=== PATIENT | male | born 1965 | race American Indian/Alaskan Native ===

== ENCOUNTER 2017-05-20 09:52 | Inpatient (IN) | payer MEDICAID, MEDICARE, OTHER ==
--- NOTE | 2017-05-20 11:13 | Cat Scan Report ---
CT CERVICAL SPINE WITHOUT CONTRAST INDICATION: Trauma. COMPARISON: None similar. FINDINGS: Noncontrast axial, sagittal and coronal CT reconstructions of the cervical spine demonstrate slight streak artifact from few small radiopaque dental fillings. Assessment of the spinal canal itself also compromised from C5 inferiorly due to artifact from shoulder soft tissues. Patient tilt partly limits exam. Normal imaged posterior fossa. Approximately 3 mm benign ossific density/ossicle seen right lateral to the dens, coronal image 15. Craniocervical articulation, occipital condyles, anterior and posterior arches of C1, dens, predental space and prevertebral soft tissues appear within normal limits. Unremarkable thyroid. Clear visualized lung apices. On the obtained axial images: C5-C6 demonstrates slight degenerative spurring and mild left facet arthropathy. C6 vertebral body also demonstrates mild degenerative spurring. CONCLUSION: No acute cervical spine CT abnormality with mild C5 and C6 degenerative changes, as described. Thank you for the opportunity to participate in this patient's care.
--- NOTE | 2017-05-20 11:24 | Cat Scan Report ---
CT HEAD WITHOUT CONTRAST INDICATION: Head trauma. History of intracranial hemorrhage. COMPARISON: 04/29/2015. FINDINGS: Noncontrast head CT again demonstrates right posterior frontotemporoparietal encephalomalacia measuring up to approximately 5 cm, axial image 44, series 2 with right-sided craniotomy. Mild ex-vacuo dilatation of the right lateral ventricle posteriorly also noted as also subtle right dural hyperdensity/possible mineralization as on axial image 39, amongst others. Age-appropriate remainder ventricles and sulci without acute or recent infarct, hemorrhage, mass effect or midline shift. Minimal benign bilateral ganglia calcifications. Normal posterior fossa with preserved basilar cisterns. Moderate to severe left sphenoid sinus opacification now noted with mild bony wall thickening. Mild right sphenoid and posterior ethmoid mucosal thickening as well. Clear remainder imaged paranasal sinuses and mastoid air cells. Stable right frontal and temporal craniotomy defects on axial image 15 as well. Interval resolution of high right scalp swelling. Mild atherosclerotic ICA calcifications. Small radiopaque dental fillings. CONCLUSION: 1. No acute intracranial CT abnormality with stable right hemispheric iatrogenic changes with encephalomalacia again noted, as described. 2. New sphenoid sinusitis, left much greater than right. Thank you for the opportunity to participate in this patient's care.
[2017-05-20] MEDS ORDERED: MORPHINE IV ONE (11:38)
--- NOTE | 2017-05-20 11:51 | XRay Report ---
LEFT FEMUR RADIOGRAPHS INDICATION: Fall. COMPARISON: None similar. FINDINGS: AP and crosstable lateral views demonstrate left femoral neck fracture at its junction with the head. Femoral head though still positioned within the acetabulum. Normal remainder femur with intact knee articulation and few atherosclerotic calcifications. Demineralized bones. Few pelvic phleboliths, rectosigmoid stool and possible scrotal surgical clips. CONCLUSION: Left femoral neck acute subcapital fracture with various other findings, as above. Thank you for the opportunity to participate in this patient's care.
--- NOTE | 2017-05-20 11:57 | XRay Report ---
RIGHT HIP RADIOGRAPHS INDICATION: Fall. COMPARISON: Left femur radiographs obtained earlier today. FINDINGS: AP pelvis with frontal/frog-leg projection of the right hip demonstrates a fracture at the junction of femoral head and neck with cortical offset of approximately 8 mm. Femoral head though still well-positioned within the acetabulum in this patient with known similar fracture on the left as well. Numerous pelvic phleboliths, rectosigmoid stool and few atherosclerotic calcifications at the groins also noted. Intact remainder pelvic articulation and imaged lower lumbar spine. Nonobstructive bowel gas pattern. Extrinsic EKG leads. CONCLUSION: Acute right femoral neck subcapital fracture noted in this patient with similar injury on the left as well with few other findings, as above. Please correlate. Thank you for the opportunity to participate in this patient's care.
[2017-05-20] MEDS: NACL 0.9% 1000 ML 1,000 ML IV SCH (12:00)
[2017-05-20 12:06] LABS: Basophils % (Auto) 0.1 % (0.0-1.8); Eosinophils % (Auto) 0.2 % (0.0-4.3); Hematocrit 35.9 % (35.5-45.6); Hemoglobin 11.7 gm/dl (11.8-15.2); Mean Corpuscular HGB Conc 33 % (32-34); Mean Corpuscular Hemoglobin 33 pg (28-32); Mean Corpuscular Volume 100 fl (84-94); Platelet Count 212 K/mm3 (140-440); Red Blood Count 3.59 M/mm3 (3.65-5.03); Red Cell Distribution Width 13.5 % (13.2-15.2); White Blood Count 9.2 K/mm3 (4.5-11.0)
--- NOTE | 2017-05-20 12:08 | Emergency Department Report ---
HPI - General Chief Complaint: Fall Time Seen by Provider: 05/20/17 10:32 - HPI HPI: This is a 52 year-old male presents to the emergency department with complaint of blood coming from the head and bilateral hip pain after he was found on the floor by staff at the [facility]. The got to see him there was a 9 cm circular bloodstain on his pillow. He has a history of previous intracranial bleed and that is what led to him having some intermittent confusion. The patient does not remember any fall. He is inpatient hospice secondary to this previous intracranial bleed. However the patient is ambulatory up until this fall. He also has a history of HIV. He did not take anything and was not given anything for his symptoms prior to presentation. ED Past Medical Hx - Past Medical History Previous Medical History?: Yes Hx CVA: Yes (7cm Intercranial Hemmorage) Hx HIV: Yes - Surgical History Past Surgical History?: Yes - Social History Smoking Status: Unknown if ever smoked - Medications Home Medications: Home Medications Medication Instructions Recorded Confirmed Last Taken Type Acetaminophen 650 mg PO Q6H PRN 05/20/17 05/20/17 Unknown History LORazepam [Ativan] 2 mg PO QHS 05/20/17 05/20/17 Unknown History Morphine Sulfate [Morphine Sulfate 15 mg PO Q4H 05/20/17 05/20/17 Unknown History ER] Morphine Sulfate [Morphine Sulfate 30 mg PO Q12H 05/20/17 05/20/17 Unknown History ER] Promethazine HCl [Promethazine INJ] 25 mg IJ Q8H PRN 05/20/17 05/20/17 Unknown History Temazepam 30 mg PO QHS 05/20/17 05/20/17 Unknown History amLODIPine [Norvasc] 5 mg PO DAILY 05/20/17 05/20/17 Unknown History levETIRAcetam [Keppra TAB] 1,000 mg PO BID 05/20/17 05/20/17 Unknown History ED Review of Systems ROS: Stated complaint: FALL Other details as noted in HPI Comment: All other systems reviewed and negative Constitutional: denies: chills, fever Eyes: denies: eye pain, eye discharge, vision change ENT: denies: throat pain, dental pain Respiratory: denies: cough, shortness of breath, wheezing Cardiovascular: denies: chest pain, palpitations Gastrointestinal: denies: abdominal pain, nausea, diarrhea Genitourinary: denies: urgency, dysuria Musculoskeletal: arthralgia, myalgia. denies: back pain Skin: denies: rash, lesions Neurological: headache. denies: weakness, numbness Physical Exam - Physical Exam Vital Signs: Vital Signs 05/20/17 10:21 Temperature 99.6 F O2 Sat by Pulse 88 Oximetry Physical Exam: GENERAL: The patient is well-developed well-nourished. HENT: Normocephalic. Atraumatic. Patient has moist mucous membranes. Left external ear canal and tympanic membrane appear normal. There is some blood seen in the right external ear canal. There appears to be a separation or laceration to the inferior wall of the external ear canal. Possible anterior right tympanic membrane perforation. EYES: Extraocular motions are intact. Pupils equal reactive to light bilaterally. NECK: Supple. Trachea is midline. CHEST/LUNGS: Clear to auscultation. There is no respiratory distress noted. HEART/CARDIOVASCULAR: Regular. There is no tachycardia. There is no gallop rub or murmur. ABDOMEN: Abdomen is soft, nontender. Patient has normal bowel sounds. There is no abdominal distention. SKIN: Skin is warm and dry. NEURO: The patient is awake, alert. AAO [address] but not time. The patient is cooperative. The patient has no focal neurologic deficits. The patient has normal speech. MUSCULOSKELETAL: There is bilateral hip tenderness to palpation but there does not appear to be any laxity with compression of the pelvis. ED Course Vital Signs 05/20/17 10:21 Temperature 99.6 F O2 Sat by Pulse 88 Oximetry - Consultations Consultation #1: I spoke to the orthopedist relations coordinator, Dr. Trivedi, who is aware of the patient's findings of bilateral femoral neck fractures and will see the patient has a consult. 05/20/17 13:17 ED Medical Decision Making - Lab Data Result diagrams: 05/20/17 11:47 05/20/17 11:47 - Radiology Data Radiology results: report reviewed, image reviewed interpreted by me: X-ray of the bilateral hips shows bilateral hip fractures in the femoral neck. CT of the head does not show any acute intracranial process including no ischemia, shift, mass, bleeding or skull fracture. CT of the cervical spine does not show any fracture, subluxation or any acute process. - Medical Decision Making 52-year-old male with a history of intracranial bleed/CVA presents to the ER from his skilled nursing/hospice after he was found on the ground from some type of a fall. The patient does not remember this incident. He was found to have blood coming from the right ear and was complaining of hip pain. At first the patient only complained of left hip pain but then he was tender to palpation in the right hip as well. X-rays were done of both hips and was found to have bilateral femoral neck fractures. He is neurovascularly intact. CT of the head does not show any acute bleed, shift, mass or any acute intracranial processes. CT of the cervical spine does not show any fracture, subluxation or any acute process. The patient's hospice has been rescinded. The orthopedist is aware. The patient will be admitted to the hospitalist service where he will receive an orthopedic consultation as well on how to proceed with the bilateral femoral fracture. - Differential Diagnosis fracture, brain bleed, skull fracture, dementia Critical Care Time: No Critical care attestation.: If time is entered above; I have spent that time in minutes in the direct care of this critically ill patient, excluding procedure time. ED Disposition Clinical Impression: Hypocalcemia, History of CVA (cerebrovascular accident), AIDS, Encephalomalacia Bilateral closed hip fractures Qualifiers: Encounter type: initial encounter Qualified Code(s): S72.001A - Fracture of unspecified part of neck of right femur, initial encounter for closed fracture; S72.002A - Fracture of unspecified part of neck of left femur, initial encounter for closed fracture Fall Qualifiers: Encounter type: initial encounter Qualified Code(s): W19.XXXA - Unspecified fall, initial encounter Disposition: DC-09 OP ADMIT IP TO THIS HOSP Is pt being admited?: Yes Condition: Stable Time of Disposition: 14:31
[2017-05-20 12:15] LABS: INR 1.35 (0.87-1.13)
[2017-05-20 12:16] LABS: Partial Thromboplastin Time 30.3 Sec. (24.2-36.6)
[2017-05-20] MEDS ORDERED: DILAUDID ONE ×2 (12:17→14:30)
[2017-05-20] MEDS ORDERED: NACL 0.9% 1000 ML 1,000 ML ONE (12:17)
--- NOTE | 2017-05-20 12:17 | History and Physical Report ---
History of Present Illness Chief complaint: My leg hurts History of present illness: 52 YO Male [facility] Resident, who was on inpatient hospice care, but revoked service today with AIDS, ICH presents to ED for evaluation. Pt is unable to provide detailed history, but history is provided by who is at bedside during exam and interview. As per patients , she visited her and found blood coming from his right ear, and he complained of bilateral hip pain. Pt ambulates independently, but was found on the floor by staff at the [facility]. The patient does not remember any fall. No reports of fever, chills, CP, Palpitations, NVD, syncope, BRBPR, recent ill contacts. Pt seen and evaluated in ED and found to have bilateral hip fractures. Ortho Surgery consulted in ED. Past History Past Medical History: HIV/AIDS, other (ICH) Past Surgical History: Other (Crainiotomy) Social history: , other (SNF resident). denies: smoking, alcohol abuse, prescription drug abuse Family history: hypertension Medications and Allergies Allergies Allergy/AdvReac Type Severity Reaction Status Date / Time No Known Allergies Allergy Verified 04/29/15 18:45 Home Medications Medication Instructions Recorded Confirmed Last Taken Type Acetaminophen 650 mg PO Q6H PRN 05/20/17 05/20/17 Unknown History LORazepam [Ativan] 2 mg PO QHS 05/20/17 05/20/17 Unknown History Morphine Sulfate [Morphine Sulfate 15 mg PO Q4H 05/20/17 05/20/17 Unknown History ER] Morphine Sulfate [Morphine Sulfate 30 mg PO Q12H 05/20/17 05/20/17 Unknown History ER] Promethazine HCl [Promethazine INJ] 25 mg IJ Q8H PRN 05/20/17 05/20/17 Unknown History Temazepam 30 mg PO QHS 05/20/17 05/20/17 Unknown History amLODIPine [Norvasc] 5 mg PO DAILY 05/20/17 05/20/17 Unknown History levETIRAcetam [Keppra TAB] 1,000 mg PO BID 05/20/17 05/20/17 Unknown History Review of Systems ROS unobtainable: due to mental status Exam - Constitutional Vitals: Temp Pulse Resp BP Pulse Ox 99.6 F 88 12 143/78 97 05/20/17 10:21 05/20/17 10:30 05/20/17 10:30 05/20/17 10:30 05/20/17 10:30 General appearance: Present: mild distress - EENT Eyes: Present: PERRL ENT: hearing intact, clear oral mucosa - Neck Neck: Present: supple, normal ROM - Respiratory Respiratory effort: normal Respiratory: bilateral: CTA - Cardiovascular Heart Sounds: Present: S1 & S2. Absent: rub, click - Extremities Extremities: pulses symmetrical, No edema Extremity abnormal: other (Bilateral hip TTP, Pain with attempted rotation, movement) Peripheral Pulses: within normal limits - Abdominal General gastrointestinal: Present: soft, non-tender, non-distended, normal bowel sounds Male genitourinary: Present: normal - Integumentary Integumentary: Present: clear, warm, dry - Musculoskeletal Musculoskeletal: gait normal, strength equal bilaterally - Psychiatric Psychiatric: no intact judgment & insight, no memory intact - Neurologic Neurologic: CNII-XII intact, moves all extremities Results - Labs CBC & Chem 7: 05/20/17 11:47 05/20/17 11:47 Labs: Abnormal lab results 05/20/17 05/20/17 Range/Units 11:47 11:47 RBC 3.59 L (3.65-5.03) M/mm3 Hgb 11.7 L (11.8-15.2) gm/dl MCV 100 H (84-94) fl MCH 33 H (28-32) pg Lymph % (Auto) 8.4 L (13.4-35.0) % Lymph # 0.8 L (1.2-5.4) K/mm3 Seg Neutrophils % 85.3 H (40.0-70.0) % Seg Neutrophils # 7.9 H (1.8-7.7) K/mm3 PT 17.4 H (12.2-14.9) Sec. INR 1.35 H (0.87-1.13) Assessment and Plan - Patient Problems (1) Bilateral hip fractures Current Visit: Yes Status: Acute Qualifiers: Encounter type: E Fracture type: F Open fracture type: O Fracture healing: F Plan to address problem: Ortho surgery consulted in ED, pain control, supportive care, Pending surgical intervention following family decision (2) AIDS Current Visit: Yes Status: Acute Plan to address problem: Outpatient ID F/U, (3) Encephalomalacia Current Visit: Yes Status: Acute Plan to address problem: CT Head, supportive care, repeat physical exam. (4) DVT prophylaxis Current Visit: Yes Status: Acute
--- NOTE | 2017-05-20 12:17 | Admit Criteria Form ---
Admission Criteria Documentation: MUSCULOSKELETAL DISEASE GRG Clinical Indications for Admission to Inpatient Care (Place 'X' for any and all applicable criteria): Hospital admission is needed for appropriate care of the patient because of 1 or more of the following: [ X]I. Fracture, dislocation, or other musculoskeletal injury requiring inpatient care(medical) as indicated by 1 or more of the following(4)(5)(6)(7) [ ]a) Vertebral fracture requiring observation for instability or neurologic compromise (8) [ ]b) Compartment syndrome (proven or cannot be ruled out during observation level of care) (9) [ ]c) Limb-threatening injury [ ]d) Major injury requiring inpatient stabilization such as traction initiation or external fixation before internal fixation or closure of complex or open fracture [X ]e) Major injury requiring inpatient treatment after emergency or observation level care (as appropriate) [ ]f) Severe pain requiring acute inpatient management [ ]g) Injury with suspicion of abuse or neglect (eg., child, dependent elderly) [ ]II. Newly diagnosed or suspected bone, joint, or orthopedic device infection (e.g., osteomyelitis, septic arthritis) needing 1 or more of the following(1)(2)(3) [ ]a) IV antibiotics that cannot be initiated in other than inpatient setting (e.g., patient too unstable or home infusion not available) [ ]b) Device removal or replacement [ ]c) Bone or soft tissue debridement [ ]d) Joint drainage (drain placement or repetitive aspirations) [ ]III. Severe rheumatologic disease (e.g., systemic lupus erythematosus, rheumatoid arthritis) with complications or comorbidities (Also use Optimal Recovery Care Criteria or General Recovery Criteria as appropriate on the basis of predominant condition), including 1 or more of the following( 10)(11)(12)(13) [ ]a) Severe infection (e.g., DANCE PROFESSOR infection, sepsis) (14) [ ]b) Respiratory complications, including 1 or more of the following : [ ]i) Pleural effusion with respiratory compromise [ ]ii) Pulmonary hypertension with congestive failure [ ]iii) Respiratory failure [ ]iv) Pulmonary hemorrhage (15) [ ]c) Hematologic disease, including 1 or more of the following: [ ]i) Coagulopathy with bleeding [ ]ii) Thrombosis with hypercoagulable state [ ]iii) Thrombotic thrombocytopenic purpura [ ]d) Cerebritis with seizures, psychosis, or other severe abnormalities [ ]e) Vertebral destruction with monitoring needed for cervical myelopathy& possible respiratory compromise [ ]f) Exacerbation that requires inpatient treatment (e.g., intravenous immunosuppression) (16) [ ]g) Acute renal failure [ ]h) Cerebritis with seizures, psychosis, Altered mental status, or other neurologic abnormalities [ ]i) Pericardial effusion with tamponade [ ]j) Vertebral destruction, with monitoring needed for cervical myelopathy and possible respiratory compromise [ ]IV. Severe vasculitis with complications or comorbidities (Also use Optimal Recovery Care Criteria General Recovery Criteria as appropriate on the basis of predominant condition), including 1 or more of the following(11)(12)(17)(18)(19)(20) [ ]a) Exacerbation that requires inpatient treatment (e.g., intravenous immunosuppression) (19)(21) [ ]b) Pulmonary hemorrhage (15) [ ]c) DANCE PROFESSOR vasculitis with seizures, psychosis, Altered mental status that is severe or persistent, or other severe abnormalities (22) [ ]d) Cerebral infarction [ ]e) Gastrointestinal ischemia [ ]f) Gangrene or threatened amputation [ ]g) Renal failure (16) [ ]h) Other significant complications of vasculitis ( eg., tissue or organ ischemia, organ dysfunction ) [ ]V. Severe myopathy as indicated by 1 or more of the following (28)(29) [ ]a) New onset of airway compromise or inability to swallow [ ]b) Respiratory deterioration with observation needed for impending respiratory failure [ ]c) Exacerbation that requires inpatient treatment (e.g., intravenous immunosuppression) [ ]. Severe crystal gout (arthropathy) indicated by 1 or more of the following (23)(24) [ ]a) Severe pain requiring acute inpatient management [ ]b) Exacerbation that requires inpatient treatment (e.g., intravenous treatment) [ ]VII.Rhabdomyolysis and 1 or more of the following (25)(26)(27) [ ]a) Acute renal failure [ ]b) Need for intravenous hydration after emergency or observation level care (as appropriate) [ ]c) Inability to maintain oral hydration [ ]d) Change in mental status [ ]e) Electrolyte abnormality that remains after emergency or observation level care (as appropriate) [ ]VIII Post amputation complication, as indicated by ANY ONE of the following [ ]a) Infection [ ]b) Dehiscence [ ]c) Myodesis failure [ ]IX. Severe pain requiring acute inpatient management due to musculoskeletal condition [ ]X. Musculoskeletal Disease and ALL of the following: [ ]a) Symptom or finding for which emergency and observation care have failed or are not considered appropriate (Use General Criteria: Observation Care as appropriate) [ ]b) Presence of ANY ONE of the following [ ]i) A General Admission Criteria [ ]ii) A Pediatric General Admission Criteria The original [facility] [employer] content created by [facility] [employer] ([employer] has been revised. The portions of the content which have been revised are identified through the use of italic text or in bold, and [facility] has neither reviewed nor approved the modified material. All other unmodified content is copyright [facility] [employer] ([employer] Please see references footnoted in the original [facility] edition 2016 Admission Criteria Met: Yes
[2017-05-20 12:20] LABS: BUN/Creatinine Ratio 9.33; Potassium 3.5 mmol/L (3.6-5.0)
[2017-05-20] MEDS ORDERED: DILAUDID IV ONE (12:31)
[2017-05-20] MEDS ORDERED: PROVENTIL IH PRN (13:04)
[2017-05-20] MEDS ORDERED: MILK OF MAGNESIA PO PRN (13:04)
[2017-05-20] MEDS ORDERED: TYLENOL PO PRN (13:04)
[2017-05-20] MEDS ORDERED: DULCOLAX PR PRN (13:04)
[2017-05-20] MEDS ORDERED: ZOFRAN IV PRN (13:04)
[2017-05-20] MEDS ORDERED: PROMETHAZINE HCL 25 MG IJ PRN (13:07)
[2017-05-20 13:15] LABS: Calcium 5.7 mg/dL (8.4-10.2)
[2017-05-20] MEDS ORDERED: RESTORIL PO PRN (13:40)
[2017-05-20] MEDS ORDERED: D5/0.45NS 1,000 ML IV SCH (14:00)
[2017-05-20] MEDS ORDERED: MS CONTIN ER PO SCH (14:00)
[2017-05-20] MEDS: DILAUDID IV PRN ×2 (14:24→20:44)
[2017-05-20] MEDS ORDERED: TYLENOL ONE (14:30)
[2017-05-20] MEDS: MS CONTIN ER PO SCH (16:16)
--- NOTE | 2017-05-20 16:30 | Anesthesia Consultation ---
Anesthesia Consult and Med Hx Date of service: 05/20/17 - Airway Anesthetic Teeth Evaluation: Good ROM Head & Neck: Adequate Mental/Hyoid Distance: Adequate Mallampati Class: Class II Intubation Access Assessment: Probably Good - Pre-Operative Health Status ASA Pre-Surgery Classification: ASA3 Proposed Anesthetic Plan: General - Cardiovascular System Hx Hypertension: Yes - Central Nervous System Hx Neuromuscular Disorder: Yes (left side weakness, following stroke) Hx Seizures: Yes (last 3 years,) CVA: Yes (hemorragic stroke 2013, craniotomy) Hx Back Pain: No Hx Psychiatric Problems: Yes (some dementia) - Additional Comments Anesthesia Medical History Comments: AIDS with multiorganal involvement, inpatient hospice care facility resident. Bilateral hips fracture following a fall after seizure on 05/20/2017
[2017-05-20] MEDS ORDERED: PEPCID IV NR (17:00)
[2017-05-20] MEDS ORDERED: VERSED IV NR (17:00)
--- NOTE | 2017-05-20 18:00 | Consultation ---
History of Present Illness - HPI Consult date: 05/20/17 Consult reason: fracture History of present illness: 52 y/o male with c/o bilateral hip pain and inability to ambulate after fall at hospice, patient was ambulatory prior to fall...hx of multiple medial issues, including, CVA's, HIV, etc...discussed treatment options with the patient and spouse in the ED, advised to have surgery if possible to prevent known sequela such as blood clots, pneumonia, bed sores, etc.... Past History Past Medical History: HIV/AIDS, other (ICH) Past Surgical History: Other (Crainiotomy) Social history: , other (SNF resident). denies: smoking, alcohol abuse, prescription drug abuse Family history: hypertension Medications and Allergies Allergies Allergy/AdvReac Type Severity Reaction Status Date / Time No Known Allergies Allergy Verified 04/29/15 18:45 Home Medications Medication Instructions Recorded Confirmed Last Taken Type Acetaminophen 650 mg PO Q6H PRN 05/20/17 05/20/17 Unknown History LORazepam [Ativan] 2 mg PO QHS 05/20/17 05/20/17 Unknown History Morphine Sulfate [Morphine Sulfate 15 mg PO Q4H 05/20/17 05/20/17 Unknown History ER] Morphine Sulfate [Morphine Sulfate 30 mg PO Q12H 05/20/17 05/20/17 Unknown History ER] Promethazine HCl [Promethazine INJ] 25 mg IJ Q8H PRN 05/20/17 05/20/17 Unknown History Temazepam 30 mg PO QHS 05/20/17 05/20/17 Unknown History amLODIPine [Norvasc] 5 mg PO DAILY 05/20/17 05/20/17 Unknown History levETIRAcetam [Keppra TAB] 1,000 mg PO BID 05/20/17 05/20/17 Unknown History Active Meds: Active Medications Acetaminophen (Tylenol) 650 mg PO Q4H PRN PRN Reason: Pain MILD(1-3)/Fever >100.5/COOPER Albuterol (Proventil) 2.5 mg IH Q4HRT PRN PRN Reason: Shortness Of Breath Amlodipine Besylate (Norvasc) 5 mg PO DAILY EDGARDO Bisacodyl (Dulcolax) 10 mg AR QDAY PRN PRN Reason: Constipation unrelieved by MOM Famotidine (Pepcid) 20 mg IV PREOP NR Stop: 05/20/17 23:59 Hydromorphone HCl (Dilaudid) 0.25 mg IV Q3H PRN PRN Reason: Pain, Moderate (4-6) Last Admin: 05/20/17 14:24 Dose: 0.25 mg Dextrose/Sodium Chloride (D5/0.45ns) 1,000 mls @ 100 mls/hr IV DIRECT EDGARDO Sodium Chloride (Nacl 0.9% 1000 Ml) 1,000 mls @ 150 mls/hr IV DIRECT EDGARDO Last Admin: 05/20/17 12:00 Dose: 150 mls/hr Levetiracetam (Keppra) 1,000 mg PO BID EDGARDO Lorazepam (Ativan) 2 mg PO QHS EDGARDO Magnesium Hydroxide (Milk Of Magnesia) 30 ml PO Q4H PRN PRN Reason: Constipation Midazolam HCl (Versed) 2 mg IV PREOP NR Stop: 05/20/17 23:59 Morphine Sulfate (Ms Contin Er) 30 mg PO Q12H EDGARDO Last Admin: 05/20/17 16:16 Dose: 30 mg Morphine Sulfate (Morphine) 15 mg PO Q4HR PRN PRN Reason: BREAKTHROUGH PAIN Ondansetron HCl (Zofran) 4 mg IV Q8H PRN PRN Reason: N/V unrelieved by Reglan Temazepam (Restoril) 30 mg PO QHS PRN PRN Reason: Sleep Physical Examination - Physical exam Narrative exam: on physical exam, lying comfortably in bed, decresed active ROM at both LE's, tender at groins plain xrays of pelvis reviewed by me and show bilateral displaced femoral neck fractures, no occult lesions seen Assessment and Plan Assessment - Bilateral femoral neck fracture, osteomalacia Recommend - bilateral bipolar hemiarthroplasties
[2017-05-20] MEDS ORDERED: NON-FORMULARY (Temazepam [Temazepam] 30 MG) PO SCH (22:00)
[2017-05-20] MEDS ORDERED: NON-FORMULARY (Levetiracetam [Keppra Tab] 1,000 MG) PO SCH (22:00)
[2017-05-20] MEDS: KEPPRA PO SCH (23:01)
[2017-05-20] MEDS: ATIVAN PO SCH (23:01)
[2017-05-20] MEDS: MORPHINE PO PRN (23:06)
[2017-05-21] MEDS: MS CONTIN ER PO SCH (01:27)
[2017-05-21] MEDS: DILAUDID IV PRN ×3 (04:24→10:58)
[2017-05-21] MEDS: MORPHINE PO PRN (06:37)
[2017-05-21] MEDS ORDERED: NORVASC PO SCH (10:00)
[2017-05-21] MEDS ORDERED: KCL 10MEQ/100ML 10 MEQ/100 ML BAG IV SCH (10:00)
[2017-05-21] MEDS ORDERED: CALCIUM GLUCONATE 2,000 MG in NACL 0.9% 100 ML IV ONE (10:00)
[2017-05-21] MEDS: KEPPRA PO SCH ×2 (10:52→21:02)
[2017-05-21] MEDS ORDERED: SUBLIMAZE ONE (11:36)
[2017-05-21] MEDS ORDERED: NACL ONE ×2 (12:17→15:19)
[2017-05-21] MEDS ORDERED: TORADOL ONE ×2 (12:17→15:17)
[2017-05-21] MEDS ORDERED: MARCAINE-EPI 0.5%-1:200,000 INFILTRATI ONE ×4 (12:17→14:30)
[2017-05-21] MEDS ORDERED: MORPHINE ONE ×2 (12:17→15:19)
[2017-05-21] MEDS ORDERED: DIPRIVAN 10 MG/ML IV ONE ×2 (12:19)
[2017-05-21] MEDS ORDERED: XYLOCAINE MPF 2% ONE (12:20)
[2017-05-21] MEDS: NACL 0.9% 1000 ML 1,000 ML IV SCH ×2 (12:20→21:04)
[2017-05-21] MEDS ORDERED: VERSED ONE (12:23)
--- NOTE | 2017-05-21 12:29 | Anesthesia Day of Surgery ---
Anesthesia Day of Surgery - Day of Surgery Patient Examined: Yes Patient H&P Reviewed: Yes Patient is NPO: Yes
[2017-05-21] MEDS ORDERED: ACD-A 500 ML IV ONE ×2 (13:06→14:20)
[2017-05-21] MEDS ORDERED: ROBINUL ONE (13:06)
[2017-05-21] MEDS ORDERED: NEO SYNEPHRINE/NS Syringe(OR USE) IV ONE (13:30)
[2017-05-21] MEDS ORDERED: DECADRON ONE (13:30)
[2017-05-21] MEDS ORDERED: ZOFRAN ONE (13:30)
[2017-05-21] MEDS ORDERED: DILAUDID ONE (13:31)
[2017-05-21] MEDS ORDERED: TORADOL IM ONE ×3 (14:30)
[2017-05-21] MEDS ORDERED: MORPHINE IM ONE ×3 (14:30)
[2017-05-21] MEDS ORDERED: NACL 0.9% IV ONE ×3 (14:30)
[2017-05-21] MEDS ORDERED: NACL 0.9% 1000 ML 2,000 ML ONE (15:11)
[2017-05-21] MEDS ORDERED: MARCAINE-EPI/PF 0.5%-1:200,000 INFILTRATI ONE (15:17)
--- NOTE | 2017-05-21 15:23 | Progress Note ---
Assessment and Plan Bilateral hip fractures Ortho surgery consulted in ED, s/p surgery today (Bilateral bipolar hemiarthroplasties hip) cont pain control, supportive care, PT eval AIDS Outpatient ID F/U, Not in any medications at home Encephalomalacia CT Head showed no new findings Hypokalemia, replete and repeat BMP in the morning DVT prophylaxis We'll place on SCD Brief history 52 YO Male [facility] Resident, who was on inpatient hospice care, but revoked service now with AIDS, ICH presents to ED for evaluation. As per patients , she visited her and found blood coming from his right ear , and he complained of bilateral hip pain. Pt ambulates independently, but was found on the floor by staff at the [facility]. Pt seen and evaluated in ED and found to have bilateral hip fractures. Ortho Surgery consulted in ED and family agreed for surgical intervention to prevent further complications. X-ray of the bilateral hips shows bilateral hip fractures in the femoral neck. CT of the head does not show any acute intracranial process including no ischemia, shift, mass, bleeding or skull fracture. CT of the cervical spine does not show any fracture, subluxation or any acute process. Subjective Date of service: 05/21/17 Interval history: Patient seen and examined. Medical records and medication list reviewed. No acute event overnight noted by the RN. Patient seen at the PACU, tolerated surgery well. Discussed plan of care at bedside with patient. Objective - Exam Narrative Exam: GENERAL: well-developed and well-nourished AAM lying on bed appeared to be in no discomfort. HEENT: Normocephalic. Atraumatic. No conjunctival congestion or icterus. Patient has moist mucous membranes. NECK: Supple. Trachea midline. CHEST/LUNGS: Clear to auscultated bilaterally, breathing nonlabored. No wheezes crackles or rhonchi. HEART/CARDIOVASCULAR: Regular in rate and rhythm. S1 and S2 positive. ABDOMEN: Abdomen is soft, nontender. Patient has normal bowel sounds. SKIN: There is no rash. Warm and dry. NEURO: No focal motor deficit. Follows command. MUSCULOSKELETAL: No joint effusion or tenderness. surgical dressing on the hip area EXTRIMITY: No edema, no cyanosis or clubbing. PSYCH: Cooperative. - Constitutional Vitals: Vital Signs - 12hr 05/21/17 05/21/17 07:00 11:20 Temperature 98.1 F 99.2 F Pulse Rate 80 77 Respiratory 16 18 Rate Blood Pressure 131/72 136/80 O2 Sat by Pulse 96 Oximetry - Labs CBC & Chem 7: 05/21/17 21:14 05/22/17 02:57
[2017-05-21] MEDS ORDERED: PROAIR IH ONE (15:38)
--- NOTE | 2017-05-21 17:26 | Post Anesthesia Evaluation ---
- Post Anesthesia Evaluation Patient Participated: Yes Airway Patent: Yes Stable Respiratory Function: Yes Nausea/Vomiting: No Temp > 96.8F: Yes Pain Manageable: Yes Adequeate Hydration: Yes Anesthesia Complications: No
[2017-05-21] MEDS ORDERED: AMBIEN PO PRN (19:03)
[2017-05-21] MEDS ORDERED: MORPHINE IV PRN (19:03)
[2017-05-21] MEDS ORDERED: ZOFRAN IV PRN (19:03)
[2017-05-21] MEDS ORDERED: MILK OF MAGNESIA PO PRN (19:03)
--- NOTE | 2017-05-21 19:03 | Procedure Note ---
Date of procedure: 05/21/17 Pre-op diagnosis: bilateral femoral neck fractures Post-op diagnosis: same Procedure: Procedure Bilateral bipolar hemiarthroplasties hip Indications 52-year-old male who sustained bilateral femoral neck fractures after a fall at hospice recently Procedure The patient was brought to the and placed on the OR table in the supine position following induction and intubation by anesthesia the right hip was approached first the patient was turned onto the left lateral decubitus position at which point the right hip was prepped and draped in a sterile manner. A lateral incision was made along the proximal portion of the femur this was taken up superiorly past the greater trochanter decision were then taken down sharply through skin and subcutaneous tissue Charnley retractors were placed in the wound the anterior capsule was incised using the Bovie as well as down upon the fracture site using a oscillating saw the remaining portion of the femoral neck was removed in line with the prosthesis next the femoral head was retrieved and measured, this was followed by reaming and broaching to a #10 stem along with a neutral neck a 26 mm head. And a 50 mm cup a trial reduction was attempted however there was difficulty and reducing the hip and unfortunately a crack developed along the posterior border of the proximal femur using a cable copy supervisor system the iatrogenic fracture was repaired this was then followed by insertion of the final components on the right measuring a #10 stem astandard neck and a 26 mm C taper L fit head along with a 50 mm universal head bipolar component again the hip was reduced taken through a range of motion and found to be stable. Next was copiously irrigated and was closed in a standard routine fashion a cocktail consisting of Toradol and morphine sulfate and normal saline was injected into the soft tissue surrounding the hip joint for postop pain management routine postoperative dressings were applied. The patient was then repositioned on the OR table with the help of our OR staff he was placed in the right lateral decubitus position at which point the left hip was prepped and draped in a sterile manner. I began a lateral incision was made along the proximal femur and carried superior this was then taken down through skin and subcutaneous the fascia valerio was incised A Charnley retractor placed in the wound and the anterior capsule was entered using a combination of scalpel and Bovie coag, again the fracture was seen and identified an oscillating saw was used to remove portions of the femoral neck and the head was retrieved using a corkscrew device again measuring ahead of 50 mm diameter was selected. The femoral canal was then reamed and broached again to a press-fit 10 stem trial sizing was begun again a neutral neck with a 50 mm C taper head was added and the hip was reduced and taken through range of motion and was found to be stable. The hip was then copiously irrigated with saline solution care was taken to remove any bone and soft tissue debris, next the final components were inserted again a #10 press- fit stem with a 26 mm C taper L fit head and a 50 mm universal head the hip again was reduced taken through range of motion and appeared stable. Next the soft tissues were repaired in a standard routine fashion the postop pain cocktail was injected into the surrounding soft tissue routine postoperative dressings were applied the patient was then extubated and was taken to postanesthesia recovery in stable condition Anesthesia: GETA Surgeon: CHELY JARA Estimated blood loss: other (500 mL with a return of 350 mL of Cell Saver blood returned to the patient) Pathology: list (both femoral heads) Specimen disposition: to lab Condition: stable Disposition: PACU
[2017-05-21] MEDS ORDERED: SODIUM CHLORIDE FLUSH SYRINGE 10 ML IV SCH (20:00)
[2017-05-21] MEDS: ANCEF/NS 1 GM/50 ML 1 GM/50 ML BAG IV SCH (21:03)
[2017-05-21 21:33] LABS: Hematocrit 28.7 % (35.5-45.6); Hemoglobin 9.5 gm/dl (11.8-15.2)
[2017-05-22] MEDS: ATIVAN PO SCH (01:05)
[2017-05-22] MEDS: DILAUDID IV PRN (01:06)
[2017-05-22 04:11] LABS: Chloride 103.1 mmol/L (98-107)
[2017-05-22] MEDS ORDERED: D50W (25GM) Vial IV ONE (04:39)
[2017-05-22] MEDS ORDERED: KIONEX PO ONE (04:45)
[2017-05-22] MEDS ORDERED: D50W (25GM) Syringe IV ONE (04:45)
[2017-05-22] MEDS ORDERED: CALCIUM CHLORIDE 1,000 MG in NACL 0.9% 100 ML IV ONE (04:46)
[2017-05-22] MEDS: ANCEF/NS 1 GM/50 ML 1 GM/50 ML BAG IV SCH (05:31)
[2017-05-22] MEDS ORDERED: SODIUM BICARBONATE IV ONE (07:25)
--- NOTE | 2017-05-22 07:34 | Progress Note ---
Assessment and Plan Bilateral hip fractures Ortho surgery consulted in ED, s/p surgery 05/21/17 (Bilateral bipolar hemiarthroplasties hip) cont pain control, supportive care, PT eval AIDS Outpatient ID F/U, Not in any medications at home Encephalomalacia CT Head showed no new findings Hypokalemia, repleted Hyperkalemia - likely due to over correction of K - s/p insulin+D50, kayexalate - will repeat level today hypocalcemia - check ionic calcium DVT prophylaxis We'll place on SCD Brief history 52 YO Male [facility] Resident, who was on inpatient hospice care, but revoked service now with AIDS, ICH presents to ED for evaluation. As per patients , she visited her and found blood coming from his right ear , and he complained of bilateral hip pain. Pt ambulates independently, but was found on the floor by staff at the [facility]. Pt seen and evaluated in ED and found to have bilateral hip fractures. Ortho Surgery consulted in ED and family agreed for surgical intervention to prevent further complications. X-ray of the bilateral hips shows bilateral hip fractures in the femoral neck. CT of the head does not show any acute intracranial process including no ischemia, shift, mass, bleeding or skull fracture. CT of the cervical spine does not show any fracture, subluxation or any acute process. Subjective Date of service: 05/22/17 Interval history: Patient seen and examined. Medical records and medication list reviewed. K level is 7 this am Discussed plan of care at bedside with patient. Objective - Exam Narrative Exam: GENERAL: well-developed and well-nourished AAM lying on bed appeared to be in no discomfort. HEENT: Normocephalic. Atraumatic. No conjunctival congestion or icterus. Patient has moist mucous membranes. NECK: Supple. Trachea midline. CHEST/LUNGS: Clear to auscultated bilaterally, breathing nonlabored. No wheezes crackles or rhonchi. HEART/CARDIOVASCULAR: Regular in rate and rhythm. S1 and S2 positive. ABDOMEN: Abdomen is soft, nontender. Patient has normal bowel sounds. SKIN: There is no rash. Warm and dry. NEURO: No focal motor deficit. Follows command. MUSCULOSKELETAL: No joint effusion or tenderness. surgical dressing on the hip area EXTRIMITY: No edema, no cyanosis or clubbing. PSYCH: Cooperative. - Constitutional Vitals: Vital Signs - 12hr 05/21/17 05/21/17 05/22/17 22:00 23:20 03:10 Temperature 98.6 F 99.5 F Pulse Rate 61 75 Pulse Rate [ 87 Left Radial] Respiratory 18 18 Rate Blood Pressure 121/78 118/76 O2 Sat by Pulse 98 96 98 Oximetry - Labs CBC & Chem 7: 05/21/17 21:14 05/22/17 02:57 Labs: Abnormal lab results 05/21/17 05/22/17 Range/Units 21:14 02:57 Hgb 9.5 L (11.8-15.2) gm/dl Hct 28.7 L D (35.5-45.6) % Sodium 132 L (137-145) mmol/L Potassium 7.0 H* D (3.6-5.0) mmol/L Carbon Dioxide 15 L (22-30) mmol/L BUN 21 H (9-20) mg/dL Glucose 135 H (75-100) mg/dL Calcium 5.0 L* (8.4-10.2) mg/dL
[2017-05-22 08:11] LABS: BUN/Creatinine Ratio 12.35; Chloride 103.7 mmol/L (98-107)
[2017-05-22 08:15] LABS: Calcium 5.8 mg/dL (8.4-10.2)
[2017-05-22 08:20] LABS: Hematocrit 26.9 % (35.5-45.6); Hemoglobin 8.4 gm/dl (11.8-15.2); Mean Corpuscular HGB Conc 31 % (32-34); Mean Corpuscular Hemoglobin 33 pg (28-32); Mean Corpuscular Volume 104 fl (84-94); Platelet Count 143 K/mm3 (140-440); Red Blood Count 2.57 M/mm3 (3.65-5.03); Red Cell Distribution Width 13.9 % (13.2-15.2); White Blood Count 12.7 K/mm3 (4.5-11.0)
[2017-05-22] MEDS ORDERED: CALCIUM GLUCONATE 1,000 MG in NACL 0.9% 100 ML IV ONE (08:30)
[2017-05-22] MEDS ORDERED: KIONEX PO PRN (09:00)
[2017-05-22] MEDS ORDERED: SODIUM BICARBONATE IV NR (09:30)
[2017-05-22] MEDS ORDERED: ATIVAN IV PRN (11:34)
[2017-05-22 11:36] VITALS: BP 187/97
[2017-05-22 11:52] LABS: ISTAT Base Excess < -30; ISTAT HCO3 3.7; ISTAT PCO2 28.3 (35-45); ISTAT PO2 102 (80-105); ISTAT SO2 86; ISTAT TCO2 < 5
[2017-05-22] MEDS ORDERED: CALCIUM GLUCONATE 2,000 MG in NACL 0.9% 100 ML IV ONE (12:00)
[2017-05-22] MEDS ORDERED: ATROPINE 0.1% (CARDIAC) IV ONE (12:33)
--- NOTE | 2017-05-22 13:01 | Death Summary ---
Summary - Providers Date of service: 05/22/17 Consults: 05/21/17 19:05 Physical Therapy Evaluation and Treat [CONS] Routine Comment: Reason For Exam: postop evaluation Weight bearing status?: Partial wt bearing Assistive devices?: Yes If so list: Walker Attending: CINTHYA AVELAR - summary Date of admission: 05/20/17 13:04 Date of : 05/22/17 Reason for admission: b/l hip fracture Procedures/treatments rendered: Brief history 52 YO Male [facility] Resident, who was on inpatient hospice care, but revoked service now with AIDS, ICH presents to ED for evaluation. As per patients , she visited her and found blood coming from his right ear , and he complained of bilateral hip pain. Pt ambulates independently, but was found on the floor by staff at the [facility]. Pt seen and evaluated in ED and found to have bilateral hip fractures. Ortho Surgery consulted in ED and family agreed for surgical intervention to prevent further complications. Patient had Bilateral bipolar hemiarthroplasties hip on 05/20/17 and he tolerated the procedure well. Next day his K noted to be 7.0 and Ca 5.0. He got insulin+D50, kayexalate, sodium bicarbonate, calcium gluconate for the electrolytes imbalance. His corrected k was 5.0 and ca was 5.8. He was tolerating diet and also had bowel movement. Afterwards he had an episode of seizure, and he was hyperventilating. He was given ativan 2mg, EKG showed Sinus Tachycardia, Stat ABG revealed pH of 6.72 with pCO2 28 and pO2 102. He was placed on BiPAP and his was notified. She stated that patient is DNR/DNI and patient never wanted to be on life support. She wanted the patient to be comfortable. patient was continued on BiPAP and eventually his HR continue to go down and was in asystole at 12.23 pm. He was pronounced at bedside. was updated at the bedside. Cause of : Cardiorespiratory arrest Diagnosis: Acute respiratory failure Cardiac arrest with asystole Bilateral hip fractures s/p surgery 05/21/17 (Bilateral bipolar hemiarthroplasties hip) AIDS Not in any medications at home Encephalomalacia CT Head showed no new findings Hypokalemia, repleted Hyperkalemia - likely due to over correction of K - s/p insulin+D50, kayexalate - corrected level was 5.0 hypocalcemia - replaced with iv calcium Pertinent studies: X-ray of the bilateral hips shows bilateral hip fractures in the femoral neck. CT of the head does not show any acute intracranial process including no ischemia, shift, mass, bleeding or skull fracture. CT of the cervical spine does not show any fracture, subluxation or any acute process.
== END 2017-05-22 16:00 | DRG 461 ==
LOC: ED 09:52 → 2B-SURG 13:04
PROVIDERS: ADMIT Internal Medicine; ATTEND Internal Medicine
PROC: 5A09357 Assistance with Respiratory Ventilation, Less than 24 Consecutive Hours, Continuous Positive Airway Pressure (ICD-10-PCS; 2017-05-20)
PROC: 4A033R1 Measurement of Arterial Saturation, Peripheral, Percutaneous Approach (ICD-10-PCS; 2017-05-20)
PROC: 0SRR0JA Replacement of Right Hip Joint, Femoral Surface with Synthetic Substitute, Uncemented, Open Approach (ICD-10-PCS; principal; 2017-05-21)
PROC: 0SRS0JA Replacement of Left Hip Joint, Femoral Surface with Synthetic Substitute, Uncemented, Open Approach (ICD-10-PCS; 2017-05-21)
DX: S72.91XA Unspecified fracture of right femur, initial encounter for closed fracture (principal); B20 Human immunodeficiency virus [HIV] disease; J96.00 Acute respiratory failure, unspecified whether with hypoxia or hypercapnia; I46.9 Cardiac arrest, cause unspecified; S72.92XA Unspecified fracture of left femur, initial encounter for closed fracture; G40.909 Epilepsy, unspecified, not intractable, without status epilepticus; E83.51 Hypocalcemia; G93.89 Other specified disorders of brain; M83.9 Adult osteomalacia, unspecified; E87.6 Hypokalemia; Z86.73 Personal history of transient ischemic attack (TIA), and cerebral infarction without residual deficits; Z82.49 Family history of ischemic heart disease and other diseases of the circulatory system; W19.XXXA Unspecified fall, initial encounter; Y93.9 Activity, unspecified; Y92.129 Unspecified place in nursing home as the place of occurrence of the external cause; E87.5 Hyperkalemia
CPT/HCPCS: 36415; 36600; 70450; 72125; 80048; 82330; 82803; 85014; 85018; 85025; 85027; 85610; 85730; 86850; 86900; 86901; 88304; 88305; 88311; 93005; 93010; 94660; 96374; C1776; J0461; J0610; J0690; J1100; J1170; J1815; J1885; J2060; J2250; J2270; J2370; J2405; J2704; J3010; J3480; J7030; L8699